=== PATIENT | male | born 1995 | race American Indian/Alaskan Native ===

== ENCOUNTER 2021-08-27 13:36 | Emergency (ER) | payer SELFPAY ==
--- NOTE | 2021-08-27 15:12 | Emergency Department Report ---
ED Recheck HPI - General Chief Complaint: Weakness Stated Complaint: DEHYDRATED Time Seen by Provider: 08/27/21 15:10 Source: patient Mode of arrival: Ambulatory Limitations: No Limitations - Related Data Allergies Allergy/AdvReac Type Severity Reaction Status Date / Time cefuroxime [From Ceftin] Allergy Unknown Verified 08/27/21 14:58 ED Review of Systems ROS: Stated complaint: DEHYDRATED Other details as noted in HPI Comment: All other systems reviewed and negative ED Past Medical Hx - Past Medical History Previous Medical History?: No - Surgical History Past Surgical History?: No - Family History Family history: no significant - Social History Smoking Status: Current Every Day Smoker Substance Use Type: Alcohol ED Physical Exam - General Limitations: No Limitations General appearance: alert, in no apparent distress - Head Head exam: Present: atraumatic, normocephalic - Eye Eye exam: Present: normal appearance - ENT ENT exam: Present: mucous membranes moist - Neck Neck exam: Present: normal inspection - Respiratory Respiratory exam: Present: normal lung sounds bilaterally. Absent: respiratory distress - Cardiovascular Cardiovascular Exam: Present: regular rate, normal rhythm. Absent: systolic murmur, diastolic murmur, rubs, gallop - GI/Abdominal GI/Abdominal exam: Present: soft, normal bowel sounds - Rectal Rectal exam: Present: deferred - Extremities Exam Extremities exam: Present: normal inspection - Back Exam Back exam: Present: normal inspection - Neurological Exam Neurological exam: Present: alert, oriented X3 - Psychiatric Psychiatric exam: Present: normal affect, normal mood - Skin Skin exam: Present: warm, dry, intact, normal color. Absent: rash ED Course Vital Signs 08/27/21 15:00 Temperature 98.2 F Pulse Rate 62 Respiratory 18 Rate Blood Pressure 118/79 O2 Sat by Pulse 100 Oximetry Critical care attestation.: If time is entered above; I have spent that time in minutes in the direct care of this critically ill patient, excluding procedure time. ED Disposition Clinical Impression: Nausea Disposition: 01 HOME / SELF CARE / HOMELESS Is pt being admited?: No Does the pt Need Aspirin: No Condition: Stable Referrals: JETT LEE MD [Staff Physician] - 3-5 Days Forms: Work/School Release Form(ED) Time of Disposition: 15:11
[2021-08-27 15:23] VITALS: BP 127/81
== END 2021-08-27 15:24 | disposition home or self-care (01) ==
LOC: ED 13:36
DX: R11.0 Nausea (principal); R53.1 Weakness; F17.200 Nicotine dependence, unspecified, uncomplicated; Z72.89 Other problems related to lifestyle; Z79.899 Other long term (current) drug therapy; Z88.8 Allergy status to other drugs, medicaments and biological substances
CPT/HCPCS: 99282

== ENCOUNTER 2021-08-30 21:04 | Emergency (ER) | payer SELFPAY ==
[2021-08-31] MEDS ORDERED: ACETAMINOPHEN 325 MG TAB PO ONE (09:17)
[2021-08-31] MEDS ORDERED: IBUPROFEN 400 MG TAB PO ONE (09:17)
--- NOTE | 2021-08-31 09:46 | XRay Report ---
CHEST 2 VIEWS INDICATION: sob. COMPARISON: None FINDINGS: SUPPORT DEVICES: None. HEART: Within normal limits. LUNGS/PLEURA: No acute air space or interstitial disease. No pneumothorax. ADDITIONAL FINDINGS: None. IMPRESSION: 1. No acute findings. Signer Name: Parker Adame MD Signed: 08/31/2021 9:41 AM Workstation Name: [id number]
[2021-08-31] MEDS ORDERED: DOXYCYCLINE 100 MG CAP PO ONE (10:59)
[2021-08-31] MEDS ORDERED: predniSONE 20 MG TAB PO ONE (11:05)
--- NOTE | 2021-08-31 11:14 | Emergency Department Report ---
ED Fever HPI - General Chief Complaint: Fever Stated Complaint: FEVER, POSSIBLE COVID Time Seen by Provider: 08/31/21 10:46 - History of Present Illness Initial Comments: 26-year-old black male with a past medical history of asthma presents to the emergency department for evaluation of 4-day history of worsening fever, dizziness, headache, sore throat, shortness of breath, cough, and runny nose. He states that he has taken several ahfe-oam-dllfrrr medications without improvement, and now his sputum has turned green and he has had increasing shortness of breath. He denies any sick contacts. He states that headache is 6 out of 10 and has been persistent. Timing/Duration: getting worse, other Fever Severity/Quality: greater than 102 F Fever Therapy [employer]: cold remedies, Ibuprofen, Tylenol Associated Symptoms: cough, diaphoresis, headache, muscle aches, shortness of breath, sore throat. denies: abdominal pain, chest pain, confusion, nausea/vomiting, rash, stiff neck, syncope, weakness ED Review of Systems ROS: Stated complaint: FEVER, POSSIBLE COVID Other details as noted in HPI Comment: All other systems reviewed and negative Constitutional: chills, diaphoresis, fever, malaise. denies: weakness Eyes: denies: eye pain, vision change ENT: throat pain, congestion. denies: dental pain, hearing loss, epistaxis Respiratory: cough, shortness of breath. denies: orthopnea, SOB with exertion, SOB at rest, stridor, wheezing Cardiovascular: denies: chest pain, palpitations, dyspnea on exertion, orthopnea, edema, syncope, paroxysmal nocturnal dyspnea Genitourinary: denies: urgency, dysuria, frequency, hematuria, discharge, testicular pain Musculoskeletal: myalgia. denies: back pain, arthralgia Skin: denies: rash, lesions Neurological: headache. denies: weakness, numbness, paresthesias, confusion, abnormal gait, vertigo ED Past Medical Hx - Social History Smoking Status: Unknown if ever smoked Substance Use Type: None - Medications Home Medications: Home Medications Medication Instructions Recorded Confirmed Last Taken Type Benzonatate [Tessalon Perles] 100 mg PO Q8HR #21 cap 08/31/21 Unknown Rx DOXYCYCLINE Hyclate [Vibramycin] 100 mg PO BID #14 capsule 08/31/21 Unknown Rx Prednisone [predniSONE 10 mg 10 mg PO .TAPER #1 pack 08/31/21 Unknown Rx (6-Day Pack, 21 Tabs)] guaiFENesin/CODEINE [Robitussin AC] 10 ml PO TID PRN #120 ml 08/31/21 Unknown Rx ED Physical Exam - General Limitations: No Limitations General appearance: alert, in no apparent distress - Head Head exam: Present: atraumatic, normocephalic - ENT ENT exam: Absent: normal exam (Bilateral nasal mucosal and turbinate swelling. Pain to bilateral frontal and maxillary sinus areas. Purulent drainage noted to nose.), normal orophraynx (Erythema noted to posterior oropharynx) - Neck Neck exam: Present: normal inspection, lymphadenopathy. Absent: tenderness, meningismus, full ROM, thyromegaly - Respiratory Respiratory exam: Present: normal lung sounds bilaterally. Absent: respiratory distress, wheezes, rales, rhonchi, stridor, chest wall tenderness - Cardiovascular Cardiovascular Exam: Present: regular rate, normal heart sounds - GI/Abdominal GI/Abdominal exam: Present: soft, normal bowel sounds. Absent: distended, tenderness, guarding, rebound, rigid - Extremities Exam Extremities exam: Present: normal inspection, normal capillary refill. Absent: tenderness, pedal edema, joint swelling, calf tenderness - Back Exam Back exam: Present: normal inspection. Absent: CVA tenderness (R), CVA tenderness (L), vertebral tenderness - Neurological Exam Neurological exam: Present: alert, oriented X3, normal gait - Psychiatric Psychiatric exam: Present: normal affect, normal mood - Skin Skin exam: Present: warm, dry, intact, normal color ED Course Vital Signs 08/30/21 21:23 Temperature 102.8 F H Pulse Rate 94 H Respiratory 16 Rate Blood Pressure 118/66 O2 Sat by Pulse 98 Oximetry ED Medical Decision Making - Radiology Data Radiology results: report reviewed, image reviewed Chest x-ray: FINDINGS: SUPPORT DEVICES: None. HEART: Within normal limits. LUNGS/PLEURA: No acute air space or interstitial disease. No pneumothorax. ADDITIONAL FINDINGS: None. IMPRESSION: 1. No acute findings. - Medical Decision Making 26-year-old black male with a past medical history of asthma presents to the emergency department for evaluation of 4-day history of worsening fever, dizziness, headache, sore throat, shortness of breath, cough, and runny nose. He states that he has taken several mjvg-dgl-ickxwda medications without i mprovement, and now his sputum has turned green and he has had increasing shortness of breath. He denies any sick contacts. He states that headache is 6 out of 10 and has been persistent. Chest x-ray without any acute abnormalities noted. Exam consistent with sinusitis, but given the fact that patient has taken 6 to 7 days of kqwm-iwi-nqmwacw medication without improvement along with 3 to 4-day history of persistent fever and purulent drainage from nose, patient will be treated for acute bacterial rhinosinusitis. He will be discharged home with doxycycline 100 mg twice a day for 7 days, prednisone Dosepak, Tessalon Perles, Robitussin-AC. He is advised to take medications as prescribed and follow-up with primary care provider if no improvement or worsening symptoms. He verbalized understanding of and agreement with plan of care. Critical care attestation.: If time is entered above; I have spent that time in minutes in the direct care of this critically ill patient, excluding procedure time. ED Disposition Clinical Impression: Acute bacterial rhinosinusitis Disposition: 01 HOME / SELF CARE / HOMELESS Is pt being admited?: No Does the pt Need Aspirin: No Condition: Stable Instructions: Sinusitis, Adult, Ggif-[id number], How to Perform a Sinus Rinse, [id number], Antibiotic Medicine, Adult, [id number]-[id number] Additional Instructions: Take medications as prescribed. Drink plenty of noncaffeinated fluids. Follow- up with your primary care provider if no improvement or worsening symptoms. Return to the emergency department as needed. Prescriptions: Prednisone [predniSONE 10 mg (6-Day Pack, 21 Tabs)] 10 mg PO .TAPER #1 pack guaiFENesin/CODEINE [Robitussin AC] 10 ml PO TID PRN #120 ml PRN Reason: Cough Benzonatate [Tessalon Perles] 100 mg PO Q8HR #21 cap DOXYCYCLINE Hyclate [Vibramycin] 100 mg PO BID #14 capsule Referrals: JETT LEE MD [Staff Physician] - 3-5 Days Forms: Work/School Release Form(ED) Time of Disposition: 11:22
[2021-08-31] MEDS ORDERED: ACETAMINOPHEN 325 MG/10.15 ML ORAL LIQD UNIT DOSE PO ONE (11:57)
[2021-08-31 12:04] VITALS: BP 124/74
== END 2021-08-31 12:00 | disposition home or self-care (01) ==
LOC: ED 21:04
DX: J01.90 Acute sinusitis, unspecified (principal); B96.89 Other specified bacterial agents as the cause of diseases classified elsewhere
CPT/HCPCS: 71046; 99283